=== PATIENT | male | born 1965 | race African-American/Black ===

== ENCOUNTER 2019-08-24 16:53 | Observation (INO) | payer OTHER ==
[~2019-08-24] VITALS: Ht 180.3 cm; Wt 83.2 kg
[2019-08-24] MEDS ORDERED: LACTATED RINGERS 1,000 ML IV ONE ×2 (17:07→20:06)
[2019-08-24 17:26] LABS: BASOPHILS % (AUTO) 0 % (0-10); EOSINOPHILS # (AUTO) 0.1 10^3/uL (0.0-0.3); EOSINOPHILS % (AUTO) 1 % (0-10); HEMATOCRIT 39 % (40-54); HEMOGLOBIN 13.6 G/DL (13.3-17.7); LYMPHOCYTES # (AUTO) 2.6 X 10^3 (1.0-4.0); LYMPHOCYTES % (AUTO) 37 % (12-44); MEAN CORPUSCULAR HEMOGLOBIN 32 PG (25-34); MEAN CORPUSCULAR HGB CONC 35 G/DL (32-36); MEAN CORPUSCULAR VOLUME 91 FL (80-99); MEAN PLATELET VOLUME 9.8 FL (7.4-10.4); MONOCYTES % (AUTO) 14 % (0-12); NEUTROPHILS # (AUTO) 3.2 X 10^3 (1.8-7.8); NEUTROPHILS % (AUTO) 47 % (42-75); PLATELET COUNT 290 10^3/uL (130-400); RED CELL DISTRIBUTION WIDTH 14.9 % (10.0-14.5); WHITE BLOOD COUNT 6.9 10^3/uL (4.3-11.0)
[2019-08-24 17:37] LABS: ALBUMIN 4.2 GM/DL (3.2-4.5); CHLORIDE 105 MMOL/L (98-107); POTASSIUM 4.3 MMOL/L (3.6-5.0); SODIUM 137 MMOL/L (135-145)
[2019-08-24 17:39] LABS: CALCIUM 8.9 MG/DL (8.5-10.1); INR 1.1 (0.8-1.4); PROTHROMBIN TIME PATIENT 14.5 SEC (12.2-14.7)
[2019-08-24 17:40] LABS: GLUCOSE 120 MG/DL (70-105); TOTAL PROTEIN 7.7 GM/DL (6.4-8.2)
[2019-08-24 17:41] LABS: CARBON DIOXIDE 17 MMOL/L (21-32)
[2019-08-24 17:42] LABS: BILIRUBIN,TOTAL 0.4 MG/DL (0.1-1.0)
[2019-08-24 17:43] LABS: ALKALINE PHOSPHATASE 53 U/L (40-136)
[2019-08-24 17:44] LABS: CREATININE SERUM 2.07 MG/DL (0.60-1.30); GFR ESTIMATED 41
[2019-08-24 17:45] LABS: BUN/CREATININE RATIO 12
[2019-08-24 17:46] LABS: ALANINE AMINOTRANSFERASE 31 U/L (0-55)
[2019-08-24 17:47] LABS: CREATINE KINASE 1229 U/L (30-200); MAGNESIUM 2.3 MG/DL (1.6-2.4)
[2019-08-24 17:54] LABS: CREATINE KINASE MB 2.8 NG/ML (<6.6)
[2019-08-24 18:14] LABS: BILIRUBIN,URINE NEGATIVE (NEGATIVE); CLARITY,URINE CLEAR; COLOR,URINE YELLOW; GLUCOSE, URINE (UA) NEGATIVE (NEGATIVE); KETONES,URINE NEGATIVE (NEGATIVE); LEUKOCYTE ESTERASE ,URINE NEGATIVE (NEGATIVE); NITRITE,URINE NEGATIVE (NEGATIVE); PROTEIN,URINE NEGATIVE (NEGATIVE)
--- NOTE | 2019-08-24 18:15 | Diagnostic Imaging Report ---
INDICATION: Heat exhaustion and muscle cramping. TIME OF EXAM: 06:03 p.m. COMPARISON: No prior studies are available for comparison. FINDINGS: The heart size is normal. The pulmonary vascularity is unremarkable. The lungs are clear. No infiltrate, effusion or pneumothorax is detected. IMPRESSION: No acute cardiopulmonary process is detected. Dictated by: Dictated on workstation # [id number]
[2019-08-24 18:22] LABS: BACTERIA,URINE NEGATIVE /HPF
--- NOTE | 2019-08-24 18:22 | ED General ---
General Chief Complaint: General Problems/Pain Stated Complaint: HEAT EXHAUSTION Nursing Triage Note: PT BROUGHT IN BY [facility] FROM SIDE OF ROAD WITH COMPLAINT OF HEAT EXHASTION AND MUSCLE CRAMPING. Nursing Sepsis Screen: No Definite Risk Source of Information: Patient, EMS History of Present Illness Date Seen by Provider: Aug 24, 2019 Time Seen by Provider: 16:54 Initial Comments PT ARRIVES VIA EMS PT IS FROM [place], AND IS HERE WORKING ON [employer] PT HAS HAD GENERALIZED MUSCLE CRAMPING FOR THE LAST 2 DAYS CRAMPING IS IN ALL OF HIS MUSCLES, INCLUDING "UNDER HIS RIBS" EMS REPORT THAT PT TRIED TO STAND AND HIS WHOLE BODY BEGAN TO CRAMP UP EMS REPORT THAT PT WAS VERY ANXIOUS AND HYPERVENTILATING AND THEY GAVE PT ATIVAN 1 MG, ALONG WITH AT LEAST 1500 ML OF SALINE EMS REPORTS THAT PT WAS TRYING TO DRIVE HERE BY POV AND GOT LOST, AND CALLED 911. FAMILY REPORTEDLY ARE FOLLOWING THE AMBULANCE. NO NAUSEA/VOMITING NO SHORTNESS OF BREATH PT STATES HE HAS URINATED 5 TIMES, AND LAST TIME WAS JUST PRIOR TO ARRIVAL STATES HE HAS STILL BEEN SWEATING PT STATES HE HAS HAD THIS BEFORE AND "GETS LOW ON 3 MINERALS--CALCIUM, POTASSIUM AND MAGNESIUM" PT STATES HE DRINKS AT LEAST 1/2 GALLON OF [employer] WHISKEY, PLUS AT LEAST 12 BEERS/ 40 OZ EACH EVERY DAY PT ALSO SMOKES MARIJUANA, AND SMOKES 1 PPD OF CIGARETTES PT FEVER OR RECENT ILLNESS NO KNOWN SICK CONTACTS OR KNOWN EXPOSURE TO COVID-19 Allergies and Home Medications Allergies Coded Allergies: No Known Drug Allergies (Unverified , 08/24/19) Patient Home Medication List Home Medication List Reviewed: Yes Review of Systems Review of Systems Constitutional: see HPI, other (ANXIOUS ) EENTM: no symptoms reported Respiratory: no symptoms reported; No cough, No short of breath Cardiovascular: see HPI, other (CHEST MUSCLES CRAMPING) Gastrointestinal: no symptoms reported; No abdominal pain, No nausea, No vomiting Genitourinary: no symptoms reported; No decreased output Musculoskeletal: see HPI, joint swelling (STATES HE HAS RHEUMATOID ARTHRITIS AND HIS THUMB JOINTS ARE SWOLLEN), muscle pain, muscle cramps, other (STATES HE HAS "BAD FEET" --HAS HAD 2 FOOT SURGERIES AND NEEDS TO HAVE 2 MORE AT SOME POINT IN THE FUTURE. ) Skin: no symptoms reported Psychiatric/Neurological: See HPI, Anxiety; Denies Headache, Denies Numbness, Denies Paresthesia, Denies Seizure, Denies Tingling, Denies Weakness Hematologic/Lymphatic: No Symptoms Reported Immunological/Allergic: no symptoms reported Past Wjcmman-Peskbs-Rxboso Hx Past Med/Social Hx: Reviewed and Corrections made Patient Social History Alcohol Use: Regular Use (1/2 GALLON [facility] WH[facility] PLUS 12 BEERS/40 OZ EACH EVERY DAY) Alcohol Beverage of Choice: Beer, Cheap Liquor Recreational Drug Use: Yes (THC) Drug of Choice: marijuana Smoking Status: Current Everyday Smoker (1 PPD) Recent Foreign Travel: No Contact w/Someone Who Travel: No Recent Infectious Disease Expo: No Recent Hopitalizations: No Immunizations Up To Date Tetanus Booster (TDap): Unknown PED Vaccines UTD: Yes Seasonal Allergies Seasonal Allergies: No Past Medical History Surgeries: Yes (BACK SURGERY X 2; HERNIA REPAIR; 2 FOOT SURGERIES) Abdominal, Orthopedic Respiratory: No Cardiac: No Neurological: No Genitourinary: No Gastrointestinal: No Musculoskeletal: Yes Arthritis, Rheumatoid Arthritis Endocrine: No HEENT: No Cancer: No Psychosocial: No Integumentary: No Blood Disorders: No Physical Exam Vital Signs Vital Signs - First Documented 08/24/19 16:53 Temp 37.0 Pulse 88 Resp 14 B/P (MAP) 121/86 (98) Pulse Ox 98 O2 Delivery Room Air Capillary Refill : Less Than 3 Seconds Height, Weight, BMI Height: '" Weight: lbs. oz. kg; 25.00 BMI Method: General Appearance: WD/WN, Anxious, Other (VERY ANXIOUS, VERY DRAMATIC, GRUNTING, GROANING AND MOANING. WON'T STAY ON THE ER CART-STATES HE HAS TO STAND DUE TO THE CRAMPING IN HIS LEGS AND FEET) Neck: Normal Inspection Respiratory: Normal Breath Sounds, No Accessory Muscle Use, No Respiratory Distress Cardiovascular: Regular Rate, Rhythm, No Edema, No JVD, No Murmur, Normal Peripheral Pulses Gastrointestinal: Non Tender, Soft Extremity: Normal Range of Motion, No Pedal Edema Neurologic/Psychiatric: Alert, Oriented x3, No Motor/Sensory Deficits, wallpaperer II- XII Norm as Tested Skin: Normal Color (PT IS BLACK), Warm/Dry Progress/Results/Core Measures Suspected Sepsis Recent Fever Within 48 Hours: No Infection Criteria Present: None New/Unexplained Altered Menta: No Sepsis Screen: No Definite Risk SIRS Temperature: Pulse: 88 Respiratory Rate: 14 Laboratory Tests 08/24/19 17:00: White Blood Count 6.9 Blood Pressure 121 /86 Mean: 98 Laboratory Tests 08/24/19 17:00: Creatinine 2.07H, INR Comment 1.1, Platelet Count 290, Total Bilirubin 0.4 Results/Orders Lab Results Laboratory Tests Test 08/24/19 17:00 08/24/19 18:07 Range/Units White Blood Count 6.9 4.3-11.0 10^3/uL Red Blood Count 4.29 L 4.35-5.85 10^6/uL Hemoglobin 13.6 13.3-17.7 G/DL Hematocrit 39 L 40-54 % Mean Corpuscular Volume 91 80-99 FL Mean Corpuscular Hemoglobin 32 25-34 PG Mean Corpuscular Hemoglobin Concent 35 32-36 G/DL Red Cell Distribution Width 14.9 H 10.0-14.5 % Platelet Count 290 130-400 10^3/uL Mean Platelet Volume 9.8 7.4-10.4 FL Neutrophils (%) (Auto) 47 42-75 % Lymphocytes (%) (Auto) 37 12-44 % Monocytes (%) (Auto) 14 H 0-12 % Eosinophils (%) (Auto) 1 0-10 % Basophils (%) (Auto) 0 0-10 % Neutrophils # (Auto) 3.2 1.8-7.8 X 10^3 Lymphocytes # (Auto) 2.6 1.0-4.0 X 10^3 Monocytes # (Auto) 1.0 0.0-1.0 X 10^3 Eosinophils # (Auto) 0.1 0.0-0.3 10^3/uL Basophils # (Auto) 0.0 0.0-0.1 10^3/uL Prothrombin Time 14.5 12.2-14.7 SEC INR Comment 1.1 0.8-1.4 Activated Partial Thromboplast Time 25 24-35 SEC Sodium Level 137 135-145 MMOL/L Potassium Level 4.3 3.6-5.0 MMOL/L Chloride Level 105 98-107 MMOL/L Carbon Dioxide Level 17 L 21-32 MMOL/L Anion Gap 15 H 5-14 MMOL/L Blood Urea Nitrogen 24 H 7-18 MG/DL Creatinine 2.07 H 0.60-1.30 MG/DL Estimat Glomerular Filtration Rate 41 BUN/Creatinine Ratio 12 Glucose Level 120 H 70-105 MG/DL Calcium Level 8.9 8.5-10.1 MG/DL Corrected Calcium 8.7 8.5-10.1 MG/DL Magnesium Level 2.3 1.6-2.4 MG/DL Total Bilirubin 0.4 0.1-1.0 MG/DL Aspartate Amino Transf (AST/SGOT) 48 H 5-34 U/L Alanine Aminotransferase (ALT/SGPT) 31 0-55 U/L Alkaline Phosphatase 53 40-136 U/L Total Creatine Kinase 1229 H 30-200 U/L Creatine Kinase MB 2.8 <6.6 NG/ML Myoglobin 488.3 H 10.0-92.0 NG/ML Troponin I < 0.028 <0.028 NG/ML B-Type Natriuretic Peptide 14.2 <100.0 PG/ML Total Protein 7.7 6.4-8.2 GM/DL Albumin 4.2 3.2-4.5 GM/DL Serum Alcohol < 10 <10 MG/DL My Orders Orders - ESTRELLA MEDEROS DO Ed Iv/Invasive Line Start (08/24/19 17:07) Ekg Tracing (08/24/19 17:07) Monitor-Rhythm Ecg Trace Only (08/24/19 17:07) Chest 1 View, Ap/Pa Only (08/24/19 17:07) Alcohol (08/24/19 17:07) BNP (08/24/19 17:07) Cbc With Automated Diff (08/24/19 17:07) Comprehensive Metabolic Panel (08/24/19 17:07) Creatine Kinase (08/24/19 17:07) Creatine Kinase Mb (08/24/19 17:07) Drug Screen Stat (Urine) (08/24/19 17:07) Magnesium (08/24/19 17:07) Protime With Inr (08/24/19 17:07) Partial Thromboplastin Time (08/24/19 17:07) Ua Culture If Indicated (08/24/19 17:07) Myoglobin Serum (08/24/19 17:07) Troponin I (08/24/19 17:07) Ed Iv/Invasive Line Start (08/24/19 17:07) Lactated Ringers (Lr 1000 Ml Iv Solution (08/24/19 17:07) Medications Given in ED Current Medications Medications Dose Ordered Sig/Kiran Route Start Time Stop Time Status Last Admin Dose Admin Lactated Ringer's 1,000 ml @ 0 mls/hr Q0M ONCE IV 08/24/19 17:07 08/24/19 17:10 DC 08/24/19 17:55 0 MLS/HR Vital Signs/I&O 08/24/19 16:53 Temp 37.0 Pulse 88 Resp 14 B/P (MAP) 121/86 (98) Pulse Ox 98 O2 Delivery Room Air Capillary Refill : Less Than 3 Seconds Blood Pressure Mean: 98 Progress Note : Progress Note NO DETERIORATION IN PT'S CONDITION DURING ER STAY. ECG Initial ECG Impression Date: Aug 24, 2019 Initial ECG Impression Time: 17:05 Initial ECG Rate: 89 Initial ECG Rhythm: Normal Sinus Initial ECG Comparisson: No Previous ECG Available Diagnostic Imaging Comments CXR--PER RADIOLOGIST REPORT AT 1822 FINDINGS: The heart size is normal. The pulmonary vascularity is unremarkable. The lungs are clear. No infiltrate, effusion or pneumothorax is detected. IMPRESSION: No acute cardiopulmonary process is detected. Reviewed: Reviewed by Nm Departure Communication (Admissions) 180--SPOKE WITH DR. MORALES, HOSPITALIST, ACCEPTS PT FOR ADMIT. WILL PUT ON ALCOHOL WITHDRAWL PROTOCOL. Impression Primary Impression: Renal failure Additional Impressions: Rhabdomyolysis Heat exhaustion Alcohol abuse Marijuana use Disposition: ADMITTED INPATIENT Condition: Stable Admissions Decision to Admit Reason: Admit from ER (General) Decision to Admit/Date: Aug 24, 2019 Time/Decision to Admit Time: 18:00 Departure-Patient Inst. Referrals: NO,LOCAL PHYSICIAN (PCP/Family) Primary Care Physician ESTRELLA MEDEROS DO Aug 24, 2019 18:22
[2019-08-24 18:28] LABS: AMPHETAMINE SCREEN, URINE NEGATIVE (NEGATIVE); BARBITURATE SCREEN URINE NEGATIVE (NEGATIVE); BENZODIAZEPINES SCREEN URINE NEGATIVE (NEGATIVE); CANNABINOID SCREEN, URINE POSITIVE (NEGATIVE); COCAINE SCREEN URINE NEGATIVE (NEGATIVE); METHADONE STAT NEGATIVE (NEGATIVE); METHAMPHETAMINE SCREEN URINE S NEGATIVE (NEGATIVE); OPIATE SCREEN URINE NEGATIVE (NEGATIVE); OXYCODONE STAT NEGATIVE (NEGATIVE); PROPOXYPHENE STAT NEGATIVE (NEGATIVE); TRICYCLIC ANTIDEPRESSANTS SCRE NEGATIVE (NEGATIVE)
--- NOTE | 2019-08-24 18:53 | NUR ---
REPORT GIVEN TO SHAI COSTELLO AT THIS TIME
--- NOTE | 2019-08-24 19:13 | NUR ---
Pt's updated with pt's status after getting pt's permission.
[2019-08-24 19:43] VITALS: BP 114/66
[2019-08-24] MEDS ORDERED: 1/2 NS IV SOLUTION 1,000 ML IV PRN (20:10)
--- NOTE | 2019-08-24 20:10 | NUR ---
LEOBARDO LÓPEZ admitted to room 409-1, with an admitting diagnosis of DEHYDRATION, RENAL FAILURE, RHABDOMYOLYSIS, HEAT EXHAUSTION, ALCOHOL WITHDRAWAL , on 08/24/19 from ED, accompanied by HOSPITAL STAFF. LEOBARDO LÓPEZ introduced to surroundings, call light, bed controls, phone, TV, temperature control, lights, meal times, smoking policy, visitor policy, side rail policy, bathrooms and showers. Patient Rights given to patient in the handbook.LEOBARDO LÓPEZ verbalizes understanding that [facility] is not responsible for the loss or damage to any personal effects or valuables that are kept in the patients posession during their hospitalization. LEOBARDO LÓPEZ verbalizes understanding of Interdisciplinary Patient Education. Patient and/or family were informed about the Rapid Response Team and its purpose.
[2019-08-24] MEDS ORDERED: CYCLOBENZAPRINE 10 MG (FLEXERIL) TAB PO PRN (20:15)
[2019-08-24] MEDS ORDERED: ANTACID SUSP 30 ML UDC (MYLANTA) PO PRN (20:15)
[2019-08-24] MEDS ORDERED: ACETAMINOPHEN 500 MG TAB (TYLENOL) PO PRN (20:15)
[2019-08-24] MEDS ORDERED: D5 1/2 NS 1000 ML IV SOLUTION 1,000 ML IV PRN (20:15)
[2019-08-24] MEDS ORDERED: LORazepam INJ 2 MG/ML (ATIVAN) VIAL IM/IV PRN (20:15)
[2019-08-24] MEDS ORDERED: LORazepam 1 MG (ATIVAN) TAB PO PRN (20:15)
[2019-08-24] MEDS ORDERED: ONDANSETRON 4 MG/2 ML (SDV) Z0FRAN IV PRN (20:15)
[2019-08-24] MEDS ORDERED: LORazepam INJ 2 MG/ML (ATIVAN) VIAL IV PRN (20:15)
[2019-08-24] MEDS ORDERED: ONDANSETRON 4 MG (ZOFRAN) ORAL DISSOLVE TAB SL PRN (20:15)
[2019-08-24] MEDS ORDERED: SENNA W/DOCUSATE (SENOKOT S) TABLET PO PRN (20:15)
[2019-08-24] MEDS: LACTATED RINGERS 1,000 ML IV SCH (20:20)
[2019-08-24] MEDS ORDERED: CATHETER FLUSH 10 ML SYR IV PRN (20:30)
[2019-08-24 20:33] VITALS: BP 114/66
--- OUTSIDE RECORDS SUMMARY | 2019-08-24 22:11 | XMS REPORT | Continuity of Care Document ---
Author Organization Unknown Address Unknown Phone Unavailable Allergies There is no data. Medications There is no data. 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 Results Test Result Range CRP SerPl-mCnc - 09/04/18 13:00 C-REACTIVE PROTEIN <0.5 MG/DL 0.0 - 1.0 Rheumatoid fact Ser-aCnc - 09/04/18 13:0 0 RA FACTOR 9 IU/ML 0 - 12 ESR Bld Qn Westrgrn - 09/04/18 13:00 ESR 15 MM/HR 0 - 15 Complete blood count (CBC) with automate d white blood cell (WBC) differential - 08/24/19 17:00 Blood leukocytes automated count (number/volume) 6.9 10*3/uL 4.3-11.0 Blood erythrocytes automated count (number/volume) 4.29 10*6/uL 4.35-5.85 Venous blood hemoglobin measurement (mass/volume) 13.6 g/dL 13.3-17.7 Blood hematocrit (volume fraction) 39 % 40-54 Automated erythrocyte mean corpuscular volume 91 [ foz_us] 80-99 Automated erythrocyte mean corpuscular h emoglobin (mass per erythrocyte) 32 pg 25-34 Automated erythrocyte mean corpuscular h emoglobin concentration measurement (mass/volume) 35 g/dL 32-36 Automated erythrocyte distribution width ratio 14. 9 % 10.0- 14.5 Automated blood platelet count (count/volume) 290 10*3/uL 130-400 Automated blood platelet mean volume measurement 9.8 [foz_us] 7.4-10.4 Automated blood neutrophils/100 leukocytes 47 % 42-75 Automated blood lymphocytes/100 leukocytes 37 % 12-44 Blood monocytes/100 leukocytes 14 % 0-12 Automated blood eosinophils/100 leukocytes 1 % 0-10 Automated blood basophils/100 leukocytes 0 % 0-10 Blood neutrophils automated count (number/volume) 3.2 10*3 1.8-7.8 Blood lymphocytes automated count (number/volume) 2.6 10*3 1.0-4.0 Blood monocytes automated count (number/volume) 1. 0 10*3 0.0-1.0 Automated eosinophil count 0.1 10*3/uL 0 .0-0.3 Automated blood basophil count (count/volume) 0.0 10*3/uL 0.0-0.1 Comprehensive metabolic panel - 08/24/19 17:00 Serum or plasma sodium measurement (moles/volume) 137 mmol/L 135-145 Serum or plasma potassium measurement (moles/volume) 4.3 mmol/L 3.6-5.0 Serum or plasma chloride measurement (moles/volume) 105 mmol/L 98-107 Carbon dioxide 17 mmol/L 21-32 Serum or plasma anion gap determination (moles/volume) 15 mmol/L 5-14 Serum or plasma urea nitrogen measurement (mass/volume ) 24 mg/dL 7-18 Serum or plasma creatinine measurement (mass/volume) 2.07 mg/dL 0.60-1.30 Serum or plasma urea nitrogen/creatinine mass ratio 12 NRG Serum or plasma creatinine measurement w ith calculation of estimated glomerular filtration rate 41 NRG Serum or plasma glucose measurement (mass/volume) 120 mg/dL 70-105 Serum or plasma calcium measurement (mass/volume) 8.9 mg/dL 8.5-10.1 Serum or plasma total bilirubin measurement (mass/volu me) 0.4 mg/dL 0.1-1.0 Serum or plasma alkaline phosphatase radha surement (enzymatic activity/volume) 53 U/L 40-136 Serum or plasma aspartate aminotransfera se measurement (enzymatic activity/volume) 48 U/L 5-34 Serum or plasma alanine aminotransferase measurement (enzymatic activity/volume) 31 U/L 0-55 Serum or plasma protein measurement (mass/volume) 7.7 g/dL 6.4-8.2 Serum or plasma albumin measurement (mass/volume) 4.2 g/dL 3.2-4.5 CALCIUM CORRECTED 8.7 mg/dL 8.5-10.1 Magnesium - 08/24/19 17:00 Magnesium 2.3 mg/dL 1.6-2.4 Serum or plasma creatine kinase measurem ent (enzymatic activity/volume) - 08/24/19 17:00 Serum or plasma creatine kinase measurem ent (enzymatic activity/volume) 1229 U/L 30-200 Serum or plasma creatine kinase MB measu rement (enzymatic activity/volume) - 08/24/19 17:00 Serum or plasma creatine kinase MB measu rement (enzymatic activity/volume) 2.8 ng/mL <6.6 Serum or plasma lithium measurement (mol es/volume) - 08/24/19 17:00 BNP PT 14.2 pg/mL <100.0 Serum or plasma troponin i.cardiac measu rement (mass/volume) - 08/24/19 17:00 Serum or plasma troponin i.cardiac measurement (mass/v olume) < ng/mL <0.028 Myoglobin, serum - 08/24/19 17:00 Myoglobin, serum 488.3 ng/mL 10.0-92.0 PT panel in platelet poor plasma by coag ulation assay - 08/24/19 17:00 Prothrombin time (PT) in platelet poor plasma by coagu lation assay 14.5 s 12.2-14.7 INR in platelet poor plasma or blood by coagulation as say 1.1 0.8-1.4 Activated partial thromboplastin time (a PTT) in platelet poor plasma bycoagulation assay - 08/24/19 17:00 Activated partial thromboplastin time (a PTT) in platelet poor plasma bycoagulation assay 25 s 24-35 Serum or plasma ethanol measurement (mas s/volume) - 08/24/19 17:00 Serum or plasma ethanol measurement (mass/volume) < mg/dL <10 Complete urinalysis with reflex to cultu re - 08/24/19 18:07 Urine color determination YELLOW NRG Urine clarity determination CLEAR NR G Urine pH measurement by test strip 7.0 5-9 Specific gravity of urine by test strip 1.010 1.016-1.022 Urine protein assay by test strip, semi-quantitative NEGATIVE NEGATIVE Urine glucose detection by automated test strip NE GATIVE NEGATIVE Erythrocytes detection in urine sediment by light micr oscopy NEGATIVE NEGATIVE Urine ketones detection by automated test strip NE GATIVE NEGATIVE Urine nitrite detection by test strip NEGATIVE NEGATIVE Urine total bilirubin detection by test strip NEGA TIVE NEGATIVE Urine urobilinogen measurement by automated test strip (mass/volume) 1.0 mg/dL < = 1.0 Urine leukocyte esterase detection by dipstick NEG ATIVE NEGATIVE Automated urine sediment erythrocyte cou nt by microscopy (number/high power field) NONE NRG Automated urine sediment leukocyte count by microscopy (number/high power field) NONE NRG Bacteria detection in urine sediment by light microsco py NEGATIVE NRG Squamous epithelial cells detection in u rine sediment by light microscopy NONE NRG Crystals detection in urine sediment by light microsco py NONE NRG Casts detection in urine sediment by light microscopy PRESENT NRG Mucus detection in urine sediment by light microscopy NEGATIVE NRG Complete urinalysis with reflex to culture NO NRG Hyaline casts detection in urine sediment by light rian roscopy 5-10 NRG Urine drug screening test - 08/24/19 18: 07 Urine phencyclidine detection by screening method NEGATIVE NEGATIVE Urine benzodiazepines detection by screening method NEGATIVE NEGATIVE Urine cocaine detection NEGATIVE NEGATI VE Urine amphetamines detection by screening method N EGATIVE NEGATIVE Urine methamphetamine detection by screening method NEGATIVE NEGATIVE Urine cannabinoids detection by screening method P OSITIVE NEGATIVE Urine opiates detection by screening method NEGATI VE NEGATIVE Urine barbiturates detection NEGATIVE N EGATIVE Screening urine tricyclic antidepressants detection NEGATIVE NEGATIVE Urine methadone detection by screening method NEGA TIVE NEGATIVE Urine oxycodone detection NEGATIVE NEGA TIVE Urine propoxyphene detection NEGATIVE N EGATIVE Encounters ACCT No. Visit Date/Time Discharge Status Pt. Type Provider Facility Loc./Unit Complaint [id number] 09/04/2018 13:40:00 09/04/2018 23:59: 59 C[facility] Outpatient MOHAN LUNDY [id number] 04/09/2018 13:20:00 04/09/2018 14:49: 00 DIS Emergency MICHELE LEE [facility] 014 [id number] 09/04/2018 13:40:00 Document Registration [id number] 08/14/2018 10:52:13 08/14/2018 23:59:5 9 [facility] Outpatient Mohan Lundy [id number] 08/24/2019 17:27:00 Document Registration
[2019-08-24] MEDS: THIAMINE INJECTION 100 MG, FOLIC ACID INJECTION 1 MG, MAGNESIUM SULFATE 2 GM, VITAMIN M... IV SCH ×5 (22:29)
--- OUTSIDE RECORDS SUMMARY | 2019-08-24 22:49 | XMS REPORT | Continuity of Care Document ---
[...] Status Pt. Type Provider Facility Loc./Unit Complaint [id number] 09/04/2018 13:40:00 09/04/2018 23:59: 59 CLS Outpatient MOHAN LUNDY [id number] 04/09/2018 13:20:00 04/09/2018 14:49: 00 DIS Emergency MICHELE LEE [facility] 014 [id number] 09/04/2018 13:40:00 Document Registration [id number] 08/14/2018 10:52:13 08/14/2018 23:59:5 9 [facility] Outpatient Mohan Lundy [id number] 08/24/2019 17:27:00 Document Registration
[2019-08-25 00:12] VITALS: BP 110/60
[2019-08-25 04:00] VITALS: BP 104/64
[2019-08-25] MEDS: LACTATED RINGERS 1,000 ML IV SCH (04:49)
[2019-08-25 05:54] LABS: BASOPHILS % (AUTO) 0 % (0-10); EOSINOPHILS # (AUTO) 0.3 10^3/uL (0.0-0.3); EOSINOPHILS % (AUTO) 4 % (0-10); HEMATOCRIT 38 % (40-54); HEMOGLOBIN 13.1 G/DL (13.3-17.7); LYMPHOCYTES # (AUTO) 2.9 X 10^3 (1.0-4.0); LYMPHOCYTES % (AUTO) 43 % (12-44); MEAN CORPUSCULAR HEMOGLOBIN 32 PG (25-34); MEAN CORPUSCULAR HGB CONC 35 G/DL (32-36); MEAN CORPUSCULAR VOLUME 93 FL (80-99); MEAN PLATELET VOLUME 9.4 FL (7.4-10.4); MONOCYTES # (AUTO) 0.8 X 10^3 (0.0-1.0); MONOCYTES % (AUTO) 12 % (0-12); NEUTROPHILS # (AUTO) 2.8 X 10^3 (1.8-7.8); NEUTROPHILS % (AUTO) 41 % (42-75); PLATELET COUNT 262 10^3/uL (130-400); RED CELL DISTRIBUTION WIDTH 15.1 % (10.0-14.5); WHITE BLOOD COUNT 6.8 10^3/uL (4.3-11.0)
[2019-08-25 06:03] LABS: ALBUMIN 3.8 GM/DL (3.2-4.5); CHLORIDE 108 MMOL/L (98-107); POTASSIUM 4.1 MMOL/L (3.6-5.0); SODIUM 139 MMOL/L (135-145)
[2019-08-25 06:04] LABS: CALCIUM 8.6 MG/DL (8.5-10.1)
[2019-08-25 06:06] LABS: GLUCOSE 107 MG/DL (70-105); TOTAL PROTEIN 6.8 GM/DL (6.4-8.2)
[2019-08-25 06:07] LABS: CARBON DIOXIDE 21 MMOL/L (21-32)
[2019-08-25 06:08] LABS: BILIRUBIN,TOTAL 0.3 MG/DL (0.1-1.0)
[2019-08-25 06:09] LABS: ALKALINE PHOSPHATASE 55 U/L (40-136); CREATININE SERUM 1.27 MG/DL (0.60-1.30); GFR ESTIMATED > 60
[2019-08-25 06:10] LABS: BUN/CREATININE RATIO 13
[2019-08-25 06:12] LABS: ALANINE AMINOTRANSFERASE 29 U/L (0-55); CREATINE KINASE 1424 U/L (30-200)
[2019-08-25 06:24] LABS: EOSINOPHILS % (MANUAL) 6 %; LYMPHOCYTES % (MANUAL) 43 %; MONOCYTES % (MANUAL) 8 %; NEUTROPHILS % (MANUAL) 43 %; RBC MORPH NORMAL
[2019-08-25 07:46] VITALS: BP 145/51
[2019-08-25] MEDS ORDERED: MULT-1067 PO (08:49)
[2019-08-25] MEDS ORDERED: ACET-2267 PO (08:49)
--- NOTE | 2019-08-25 08:50 | NUR ---
SPOKE WITH THE PT TO COMPLETE THE MED REC PT DENIES TAKING ANY PRESCRIPTION MEDICATION OTC MEDS: MTV TYLENOL PRN I DID UPDATE THE PATIENTS PREFERRED PHARMACY
[2019-08-25] MEDS: THIAMINE INJECTION 100 MG, FOLIC ACID INJECTION 1 MG, MAGNESIUM SULFATE 2 GM, VITAMIN M... IV SCH ×5 (09:33)
[2019-08-25 10:20] VITALS: BP 145/51
--- NOTE | 2019-08-25 10:20 | NUR ---
LEOBARDO LÓPEZ demonstrates understanding of discharge instructions and accurately returns instructions upon questioning. Copy of Post-Discharge Instructions and Medication Discharge Instructions given to PT. LEOBARDO LÓPEZ is able to manage continuing needs after discharge. Patients belongings returned to PT. Skin dry and intact; no breakdown noted. Patient discharged from [facility] on at 1020. LEOBARDO LÓPEZ left floor AMBULATING, accompanied by STAFF.
--- NOTE | 2019-08-25 15:26 | Discharge Summary ---
Discharge Summary Hospital Course Was the Problem List Reviewed?: Yes Problems/Dx: (1) Acute kidney injury Status: Acute (2) Dehydration Status: Acute Hospital Course Date of Admission: Aug 24, 2019 at 18:02 Admission Diagnosis : Acute kidney injury Family Physician/Provider: Deysi,Local Physician Date of Discharge: 08/25/19 Discharge Diagnosis: Acute kidney injury Hospital Course: Akin Fernandez is a 53-year-old male who presented with dehydration and was admitted with acute kidney injury. He was treated with IV fluids and his renal function improved. He also reported a history of alcohol abuse and was encouraged to decrease his use. He is from [place] and is working here temporarily but may be in the area for nearly a year. He was encouraged to establish care with a primary care physician. Labs and Pending Lab Test: Laboratory Tests 08/24/19 17:00: White Blood Count 6.9, Red Blood Count 4.29L, Hemoglobin 13.6, Hematocrit 39L, Mean Corpuscular Volume 91, Mean Corpuscular Hemoglobin 32, Mean Corpuscular Hemoglobin Concent 35, Red Cell Distribution Width 14.9H, Platelet Count 290, Mean Platelet Volume 9.8, Neutrophils (%) (Auto) 47, Lymphocytes (%) (Auto) 37, Monocytes (%) (Auto) 14H, Eosinophils (%) (Auto) 1, Basophils (%) (Auto) 0, Neutrophils # (Auto) 3.2, Lymphocytes # (Auto) 2.6, Monocytes # (Auto) 1.0, Eosinophils # (Auto) 0.1, Basophils # (Auto) 0.0, Prothrombin Time 14.5, INR Comment 1.1, Activated Partial Thromboplast Time 25, Sodium Level 137, Potassium Level 4.3, Chloride Level 105, Carbon Dioxide Level 17L, Anion Gap 15H, Blood Urea Nitrogen 24H, Creatinine 2.07H, Estimat Glomerular Filtration Rate 41, BUN/Creatinine Ratio 12, Glucose Level 120H, Calcium Level 8.9, Corrected Calcium 8.7, Magnesium Level 2.3, Total Bilirubin 0.4, Aspartate Amino Transf (AST/SGOT) 48H, Alanine Aminotransferase (ALT/SGPT) 31, Alkaline Phosphatase 53, Total Creatine Kinase 1229H, Creatine Kinase MB 2.8, Myoglobin 488.3H, Troponin I < 0.028, B-Type Natriuretic Peptide 14.2, Total Protein 7.7, Albumin 4.2, Serum Alcohol < 10 08/24/19 18:07: Urine Color YELLOW, Urine Clarity CLEAR, Urine pH 7.0, Urine Specific [place] 1.010L, Urine Protein NEGATIVE, Urine Glucose (UA) NEGATIVE, Urine Ketones NEGATIVE, Urine Nitrite NEGATIVE, Urine Bilirubin NEGATIVE, Urine Urobilinogen 1.0, Urine Leukocyte Esterase NEGATIVE, Urine RBC (Auto) NEGATIVE, Urine RBC NONE, Urine WBC NONE, Urine Squamous Epithelial Cells NONE, Urine Crystals NONE, Urine Bacteria NEGATIVE, Urine Casts PRESENT, Urine Hyaline Casts 5-10H, Urine Mucus NEGATIVE, Urine Culture Indicated NO, Urine Opiates Screen NEGATIVE, Urine Oxycodone Screen NEGATIVE, Urine Methadone Screen NEGATIVE, Urine Propoxyphene Screen NEGATIVE, Urine Barbiturates Screen NEGATIVE, Ur Tricyclic A ntidepressants Screen NEGATIVE, Urine Phencyclidine Screen NEGATIVE, Urine Amphetamines Screen NEGATIVE, Urine Methamphetamines Screen NEGATIVE, Urine Benzodiazepines Screen NEGATIVE, Urine Cocaine Screen NEGATIVE, Urine Cannabinoids Screen POSITIVEH 08/25/19 05:38: White Blood Count 6.8, Red Blood Count 4.11L, Hemoglobin 13.1L, Hematocrit 38L, Mean Corpuscular Volume 93, Mean Corpuscular Hemoglobin 32, Mean Corpuscular Hemoglobin Concent 35, Red Cell Distribution Width 15.1H, Platelet Count 262, Mean Platelet Volume 9.4, Neutrophils (%) (Auto) 41L, Lymphocytes (%) (Auto) 43, Monocytes (%) (Auto) 12, Eosinophils (%) (Auto) 4, Basophils (%) (Auto) 0, Neutrophils # (Auto) 2.8, Lymphocytes # (Auto) 2.9, Monocytes # (Auto) 0.8, Eosinophils # (Auto) 0.3, Basophils # (Auto) 0.0, Sodium Level 139, Potassium Level 4.1, Chloride Level 108H, Carbon Dioxide Level 21, Anion Gap 10, Blood Urea Nitrogen 16, Creatinine 1.27, Estimat Glomerular Filtration Rate > 60, BUN/Creatinine Ratio 13, Glucose Level 107H, Calcium Level 8.6, Corrected Calcium 8.8, Total Bilirubin 0.3, Aspartate Amino Transf (AST/SGOT) 45H, Alanine Aminotransferase (ALT/SGPT) 29, Alkaline Phosphatase 55, Total Creatine Kinase 1424H, Total Protein 6.8, Albumin 3.8, Neutrophils % (Manual) 43, Lymphocytes % (Manual) 43, Monocytes % (Manual) 8, Eosinophils % (Manual) 6, Blood Morphology Comment NORMAL Home Meds Active Reported Tylenol Extra Strength (Acetaminophen) 500 Mg Tablet 1,000 Mg PO Q6H PRN Centrum Adults Tablet (Multivitamin/Iron/Folic Acid) 1 Each Tablet 1 Each PO DAILY Assessment/Pt Instructions Stay well hydrated. Decreased alcohol use. Establish care with a primary care physician. Discharge Planning: <30 minutes discharge planning Discharge Instructions Discharge Diet: No Restrictions Activity as Tolerated: Yes Discharge Physical Examination Vital Signs Vital Signs Date Time Temp Pulse Resp B/P (MAP) Pulse Ox O2 Delivery O2 Flow Rate FiO2 08/25/19 10:20 36.5 56 20 145/51 96 Room Air General Appearance: No Apparent Distress, WD/WN HEENT: PERRL/EOMI, Pharynx Normal Respiratory: Lungs Clear, Normal Breath Sounds, No Respiratory Distress Cardiovascular: Regular Rate, Rhythm, No Edema, No Murmur Gastrointestinal: Normal Bowel Sounds, Non Tender, Soft Extremity: Normal Inspection, Non Tender, No Pedal Edema Skin: Normal Color, Warm/Dry Neurologic/Psychiatric: Alert, Oriented x3, No Motor/Sensory Deficits, Other (Angry and agitated) Allergies: Coded Allergies: No Known Drug Allergies (Unverified , 08/24/19) Discharge Summary Date of Admission Aug 24, 2019 at 18:02 Date of Discharge Aug 25, 2019 at 10:20 Discharge Date: Aug 25, 2019 Discharge Time: 10:20 Admission Diagnosis Acute kidney injury Discharge Diagnosis (1) Acute kidney injury Status: Acute (2) Dehydration Status: Acute Clinical Quality Measures DVT/VTE Risk/Contraindication: Risk Factor Score Per Nursin RFS Level Per Nursing on Admit: 3=High FISH MORALES MD Aug 25, 2019 15:25
== END 2019-08-25 09:27 | disposition home or self-care (01) ==
LOC: ER 17:05 → UNDOADMOB 18:02 → 4TH 18:02 → UNDODISOB 08-25 10:20
PROVIDERS: ADMIT Internal Medicine; ATTEND Internal Medicine
DX: N17.9 Acute kidney failure, unspecified (principal); E86.0 Dehydration; R25.2 Cramp and spasm; F17.210 Nicotine dependence, cigarettes, uncomplicated; M06.9 Rheumatoid arthritis, unspecified
CPT/HCPCS: 71045; 80053 ×2; 80306; 81000; 82550 ×2; 82553; 83735; 83874; 83880; 84484; 85007; 85025; 85027; 85610; 85730; 93005; 93041; 99284; G0378; G0480; 36415; 80320

== ENCOUNTER → 2019-10-14 | Outpatient (CLI) | payer OTHER ==
[~2019-10-14] MED LIST: ACET-2267 PO; MULT-1067 PO
[2019-10-14 09:18] LABS: BASOPHILS % (AUTO) 0 % (0-10); EOSINOPHILS % (AUTO) 0 % (0-10); HEMATOCRIT 41 % (40-54); HEMOGLOBIN 13.9 G/DL (13.3-17.7); LYMPHOCYTES # (AUTO) 1.1 X 10^3 (1.0-4.0); LYMPHOCYTES % (AUTO) 12 % (12-44); MEAN CORPUSCULAR HEMOGLOBIN 31 PG (25-34); MEAN CORPUSCULAR HGB CONC 34 G/DL (32-36); MEAN CORPUSCULAR VOLUME 92 FL (80-99); MONOCYTES # (AUTO) 0.7 X 10^3 (0.0-1.0); MONOCYTES % (AUTO) 8 % (0-12); NEUTROPHILS # (AUTO) 7.3 X 10^3 (1.8-7.8); NEUTROPHILS % (AUTO) 81 % (42-75); PLATELET COUNT 321 10^3/uL (130-400); RED CELL DISTRIBUTION WIDTH 15.2 % (10.0-14.5); WHITE BLOOD COUNT 9.1 10^3/uL (4.3-11.0)
[2019-10-14 09:37] LABS: URIC ACID 4.9 MG/DL (2.6-7.2)
[2019-10-14 09:42] LABS: ERYTHROCYTE SEDIMENTATION RATE 6 MM/HR (0-30)
== END ==
LOC: LAB 08:53
PROVIDERS: ATTEND Nurse Practitioner Family
DX: M18.0 Bilateral primary osteoarthritis of first carpometacarpal joints (principal); M79.641 Pain in right hand; M79.642 Pain in left hand
CPT/HCPCS: 36415; 84550; 85025; 85652; 86141; 86200; 86235; 86431

== ENCOUNTER 2020-04-18 16:49 | Emergency (ER) | payer OTHER ==
[~2020-04-18] VITALS: Ht 180.3 cm; Wt 79.3 kg
[2020-04-18 18:11] LABS: BILIRUBIN,URINE NEGATIVE (NEGATIVE); CLARITY,URINE CLEAR; COLOR,URINE YELLOW; GLUCOSE, URINE (UA) NEGATIVE (NEGATIVE); KETONES,URINE TRACE (NEGATIVE); LEUKOCYTE ESTERASE ,URINE NEGATIVE (NEGATIVE); NITRITE,URINE NEGATIVE (NEGATIVE); PROTEIN,URINE NEGATIVE (NEGATIVE)
[2020-04-18 18:18] LABS: BACTERIA,URINE NEGATIVE /HPF; RBC,URINE 0-2 /HPF; SQUAMOUS EPITHELIAL CELL,UR 0-2 /HPF
[2020-04-18] MEDS ORDERED: KETOROLAC 30 MG/ML VIAL IVP STA (18:47)
[2020-04-18] MEDS ORDERED: FAMOTIDINE 20MG/2ML IV (PEPCID) IV STA (18:48)
--- NOTE | 2020-04-18 18:59 | ED General ---
General Chief Complaint: General Problems/Pain Stated Complaint: ABD PAIN, HURTS ALL OVER Nursing Triage Note: Pt ambulatory to ED. Pt has multiple complaints. Pt reports having rheumatoid arthritis and reports not having injections for five years. Pt c/o pain and inflammation in hands. Pt reports severe abdominal pain that radiates into back that has persisted "for a long time." Pt denies ever seeking treatment and states, "I am now scared." Pt also reports night sweats. Nursing Sepsis Screen: No Definite Risk Source of Information: Patient Exam Limitations: No Limitations History of Present Illness Date Seen by Provider: Apr 18, 2020 Time Seen by Provider: 18:38 Initial Comments Here with a variety of complaints but mostly related around upper abdominal pain that radiates to his back. Also states it radiates up into his chest. Notes that this occurs after working hard during the day or and or breathing hard. He does work on the [email or web address]. States he stays on the ground. He has been traveling for several years with this job and is only here for 3 more weeks. Does have some discomfort currently. Previously was on medication for acid reflux but has been off that for a while or out of it anyway. Admits to smoking 1 to 2 packs of cigarettes a day and drinking 6-12 beers daily. Denies current drug use but has smoked marijuana in the past. He is working on slowing down both on the drinking and smoking and knows that those are adversely affecting his body. Timing/Duration: Changing Over Time, Getting Worse, Other (On and off for weeks to months) Severity: Moderate Associated Systoms: Chest Pain; No Cough, No Fever/Chills, No Nausea/Vomiting; Shortness of Air; No Weakness Allergies and Home Medications Allergies Coded Allergies: No Known Drug Allergies (Unverified , 08/24/19) Home Medications Acetaminophen 500 Mg Tablet, 1,000 MG PO Q6H PRN for PAIN-MILD (1-4), (Reported) Multivitamin/Iron/Folic Acid 1 Each Tablet, 1 EACH PO DAILY, (Reported) Patient Home Medication List Home Medication List Reviewed: Yes Review of Systems Review of Systems Constitutional: see HPI; No chills, No fever EENTM: No nose congestion, No throat pain Respiratory: No cough; short of breath Cardiovascular: chest pain; No edema Gastrointestinal: abdominal pain; No nausea, No vomiting Genitourinary: no symptoms reported Musculoskeletal: joint pain, muscle pain Skin: no symptoms reported Psychiatric/Neurological: No Symptoms Reported All Other Systems Reviewed Negative Unless Noted: Yes Past Uopzmlh-Vmqiac-Rvsbpk Hx Past Med/Social Hx: Reviewed Nursing Past Med/Soc Hx Patient Social History Alcohol Use: Regular Use Number of Drinks Today: CC Alcohol Beverage of Choice: Beer, Cheap Liquor Drug of Choice: marijuana Smoking Status: Current Everyday Smoker Recent Infectious Disease Expo: No Recent Hopitalizations: No Immunizations Up To Date Tetanus Booster (TDap): Unknown PED Vaccines UTD: Yes Seasonal Allergies Seasonal Allergies: No Past Medical History Surgeries: Yes (BACK SURGERY X 2; HERNIA REPAIR; 2 FOOT SURGERIES) Abdominal, Orthopedic Respiratory: Yes Asthma, COPD Cardiac: Yes ("mild heart attack") Neurological: No Genitourinary: No Gastrointestinal: No Musculoskeletal: Yes Arthritis, Rheumatoid Arthritis Endocrine: No HEENT: No Cancer: No Psychosocial: No Integumentary: No Blood Disorders: No Family Medical History Reviewed Nursing Family Hx Physical Exam Vital Signs Vital Signs - First Documented 04/18/20 17:45 Temp 37.1 Pulse 75 Resp 18 B/P (MAP) 132/85 (101) Pulse Ox 98 O2 Delivery Room Air Capillary Refill : Less Than 3 Seconds Height, Weight, BMI Height: '" Weight: lbs. oz. kg; 24.00 BMI Method: General Appearance: No Apparent Distress, WD/WN HEENT: PERRL/EOMI, Pharynx Normal Neck: Non Tender, Supple Respiratory: Lungs Clear, Normal Breath Sounds Cardiovascular: Regular Rate, Rhythm, No Murmur Gastrointestinal: Non Tender, Soft Back: Normal Inspection, No CVA Tenderness, No Vertebral Tenderness Extremity: Normal Range of Motion, Non Tender, Other (Clubbing noted to cruz garcia) Neurologic/Psychiatric: Alert, Oriented x3 Skin: Normal Color, Warm/Dry Progress/Results/Core Measures Suspected Sepsis Recent Fever Within 48 Hours: No Infection Criteria Present: None New/Unexplained Altered Menta: No Sepsis Screen: No Definite Risk SIRS Temperature: Pulse: 75 Respiratory Rate: 18 Laboratory Tests 04/18/20 18:25: White Blood Count 7.3 Blood Pressure 132 /85 Mean: 101 Laboratory Tests 04/18/20 18:25: Creatinine 1.33H, Platelet Count 312, Total Bilirubin 0.3 Results/Orders Lab Results Laboratory Tests Test 04/18/20 18:02 04/18/20 18:25 Range/Units Urine Color YELLOW Urine Clarity CLEAR Urine pH 6.0 5-9 Urine Specific [place] 1.025 H 1.016-1.022 Urine Protein NEGATIVE NEGATIVE Urine Glucose (UA) NEGATIVE NEGATIVE Urine Ketones TRACE H NEGATIVE Urine Nitrite NEGATIVE NEGATIVE Urine Bilirubin NEGATIVE NEGATIVE Urine Urobilinogen 0.2 < = 1.0 MG/DL Urine Leukocyte Esterase NEGATIVE NEGATIVE Urine RBC (Auto) TRACE-I NEGATIVE Urine RBC 0-2 /HPF Urine WBC 2-5 /HPF Urine Squamous Epithelial Cells 0-2 /HPF Urine Crystals NONE /LPF Urine Bacteria NEGATIVE /HPF Urine Casts NONE /LPF Urine Mucus MODERATE H /LPF Urine Culture Indicated NO White Blood Count 7.3 4.3-11.0 10^3/uL Red Blood Count 4.18 L 4.30-5.52 10^6/uL Hemoglobin 13.1 L 13.3-17.7 g/dL Hematocrit 38 L 40-54 % Mean Corpuscular Volume 91 80-99 fL Mean Corpuscular Hemoglobin 31 25-34 pg Mean Corpuscular Hemoglobin Concent 34 32-36 g/dL Red Cell Distribution Width 14.6 H 10.0-14.5 % Platelet Count 312 130-400 10^3/uL Mean Platelet Volume 9.7 9.0-12.2 fL Immature Granulocyte % (Auto) 0 % Neutrophils (%) (Auto) 43 42-75 % Lymphocytes (%) (Auto) 47 H 12-44 % Monocytes (%) (Auto) 8 0-12 % Eosinophils (%) (Auto) 2 0-10 % Basophils (%) (Auto) 0 0-10 % Neutrophils # (Auto) 3.1 1.8-7.8 10^3/uL Lymphocytes # (Auto) 3.4 1.0-4.0 10^3/uL Monocytes # (Auto) 0.6 0.0-1.0 10^3/uL Eosinophils # (Auto) 0.1 0.0-0.3 10^3/uL Basophils # (Auto) 0.0 0.0-0.1 10^3/uL Immature Granulocyte # (Auto) 0.0 0.0-0.1 10^3/uL Sodium Level 138 135-145 MMOL/L Potassium Level 3.6 3.6-5.0 MMOL/L Chloride Level 105 98-107 MMOL/L Carbon Dioxide Level 23 21-32 MMOL/L Anion Gap 10 5-14 MMOL/L Blood Urea Nitrogen 21 H 7-18 MG/DL Creatinine 1.33 H 0.60-1.30 MG/DL Estimat Glomerular Filtration Rate > 60 BUN/Creatinine Ratio 16 Glucose Level 84 70-105 MG/DL Calcium Level 9.1 8.5-10.1 MG/DL Corrected Calcium 8.8 8.5-10.1 MG/DL Magnesium Level 2.3 1.6-2.4 MG/DL Total Bilirubin 0.3 0.1-1.0 MG/DL Aspartate Amino Transf (AST/SGOT) 33 5-34 U/L Alanine Aminotransferase (ALT/SGPT) 28 0-55 U/L Alkaline Phosphatase 52 40-136 U/L Troponin I < 0.028 <0.028 NG/ML C-Reactive Protein High Sensitivity 0.18 0.00-0.50 MG/DL Total Protein 7.8 6.4-8.2 GM/DL Albumin 4.4 3.2-4.5 GM/DL Lipase 27 8-78 U/L My Orders Orders - LILY MATA MD Ed Iv/Invasive Line Start (04/18/20 18:47) Ekg Tracing (04/18/20 18:47) Chest Pa/Lat (2 View) (04/18/20 18:47) Cbc With Automated Diff (04/18/20 18:47) Comprehensive Metabolic Panel (04/18/20 18:47) Hs C Reactive Protein (04/18/20 18:47) Lipase (04/18/20 18:47) Magnesium (04/18/20 18:47) Troponin I (04/18/20 18:47) Ketorolac Injection (Toradol Injection) (04/18/20 18:47) Famotidine Injection (Pepcid Injection) (04/18/20 18:48) Ct Abdomen/Pelvis W (04/18/20 19:52) Ns Iv 1000 Ml (Sodium Chloride 0.9%) (04/18/20 20:00) Iohexol Injection (Omnipaque 350 Mg/Ml 1 (04/18/20 20:15) Received Contrast (Hold Metformin- Contr (04/18/20 20:15) Sodium Chloride Flush (Catheter Flush Sy (04/18/20 20:15) Ns (Ivpb) (Sodium Chloride 0.9% Ivpb Bag (04/18/20 20:15) Albuterol Inhaler (Ventolin Hfa) (04/18/20 22:00) Medications Given in ED Current Medications Medications Dose Ordered Sig/Kiran Route Start Time Stop Time Status Last Admin Dose Admin Iohexol 100 ml ONCE ONCE IV 04/18/20 20:15 04/18/20 20:16 DC 04/18/20 20:32 100 ML Sodium Chloride 10 ml NEEDED PRN IV 04/18/20 20:15 04/18/20 20:32 10 ML Sodium Chloride 100 ml ONCE ONCE IV 04/18/20 20:15 04/18/20 20:16 DC 04/18/20 20:32 80 ML Sodium Chloride 1,000 ml @ 0 mls/hr Q0M ONCE IV 04/18/20 20:00 04/18/20 20:01 DC 04/18/20 20:53 1,000 MLS/HR Vital Signs/I&O 04/18/20 17:45 Temp 37.1 Pulse 75 Resp 18 B/P (MAP) 132/85 (101) Pulse Ox 98 O2 Delivery Room Air Capillary Refill : Less Than 3 Seconds Blood Pressure Mean: 101 Progress Note : Progress Note Seen and evaluated. IV, labs, EKG and chest x-ray ordered. Toradol 30 mg IV ordered. Monitor patient. 1951: CT abdomen and pelvis ordered. Labs look okay but he does have significant risk secondary to drinking and smoking for cancer related issues so we will go ahead and get the CT scan. This was discussed at length with the patient and he agreed. Monitor patient. 2114: CT negative except for increased stool. Otherwise no acute findings. We will give him an albuterol inhaler with spacer for his intermittent COPD/emphysema breathing issues. Nurse will do that with teaching now. I will prescribe him outpatient albuterol ampules for his breathing machine since he is out of that. He will follow-up in [place] for recheck and further evaluation before going to his next location in [place]. Otherwise we will continue eozo-ugi-[id number] omeprazole and MiraLAX as needed due to constipation findings on CT scan. Discharged home with return precautions. Patient verbalized understanding of instructions and ag reement with plan. We did discuss his upper shoulder and neck tightness and we discussed topical icy hot with lidocaine or similar and he will try that. ECG Initial ECG Impression Date: Apr 18, 2020 Initial ECG Impression Time: 19:18 Initial ECG Rate: 59 Initial ECG Rhythm: Normal Sinus Comment Sinus rhythm with normal axis. No evidence of ST elevation MO. No previous available for comparison. Interpreted by me. Diagnostic Imaging Diagonstic Imaging: Xray Plain Films/CT/US/NM/MRI: chest Comments [facility], [place] NAME: LEOBARDO LÓPEZ [facility] REC#: [id number] PT STATUS: REG ER : 1965 PHYSICIAN: LILY MATA MD ADMIT DATE: 04/18/20/ER Signed Date of Exam:04/18/20 CHEST PA/LAT (2 VIEW) INDICATION: Chest pain. TIME OF EXAM: 7:06 PM CORRELATION is made with prior chest from 08/24/2019. Heart size is normal. The lungs appear to be clear. No infiltrates are seen. There is no effusion or pneumothorax. IMPRESSION: No acute abnormality is detected. Dictated by: Dictated on workstation # [id number] Dict: 04/18/201909 Trans: 04/18/201925 [facility] [phone] Interpreted by: DEREK RAMOS MD Electronically signed by: DEREK RAMOS MD 04/18/201925 Reviewed: Reviewed by Me Diagonstic Imaging: CT Plain Films/CT/US/NM/MRI: abdomen, pelvis Comments NAME: LEOBARDO LÓPEZ [facility] REC#: [id number] PT STATUS: REG ER : 1965 PHYSICIAN: LILY MATA MD ADMIT DATE: 04/18/20/ER Draft Date of Exam:04/18/20 CT ABDOMEN/PELVIS W PROCEDURE: CT abdomen and pelvis with contrast. TECHNIQUE: Multiple contiguous axial images were obtained through the abdomen and pelvis after administration of intravenous contrast. Auto Exposure Controls were utilized during the CT exam to meet ALARA standards for radiation dose reduction. All CT scans use one or more of the following dose optimizing techniques: automated exposure control, MA and/or KvP adjustment based on patient size and exam type or iterative reconstruction. INDICATION: Lower abdominal pain radiating to the back. Upper abdominal pain. COMPARISON: None FINDINGS: The lung bases are clear. The heart is normal in size. There is no pericardial effusion. The liver demonstrates no focal lesions. The spleen appears normal. The pancreas is normal. The adrenal glands appear normal. The kidneys are unremarkable. There is moderate gas and stool in the ascending and transverse colon. There are multiple gas-filled loops of small bowel, which are not significantly distended to suggest obstruction, and no transition point is seen. The appendix is normal (image 52 series 2). No free fluid or free air is seen. No lymphadenopathy is seen. There is degenerative change and postsurgical change in the lumbar spine. 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 IMPRESSION: 1. Moderate stool in the colon, please correlate with any history of constipation. No bowel obstruction is seen. Dictated on workstation # [id number] Dict: 04/18/202046 Trans: 04/18/202101 [facility] [phone] Interpreted by: HEMALATHA ROMERO MD Electronically signed by: Reviewed: Reviewed by Me Departure Impression Primary Impression: Upper abdominal pain Additional Impressions: Chest tightness Constipation Qualified Codes: K59.00 - Constipation, unspecified Disposition: 01 HOME, SELF-CARE Condition: Improved Departure-Patient Inst. Decision time for Depature: 21:22 Referrals: NO,LOCAL PHYSICIAN (PCP/Family) Primary Care Physician Patient Instructions: CHRONIC PAIN, Abdominal Pain, Adult ED, Constipation, Adult (DC) Add. Discharge Instructions: All discharge instructions reviewed with patient and/or family. Voiced und erstanding. You should decrease alcohol and tobacco for your health and consider quitting over time. For the constipation, you may use MiraLAX at the generic 1 capful daily as needed for improved bowel movements. You may increase or decrease the dose as needed to obtain a normal bowel regimen. You may take ngik-dpa-tweonks omeprazole 20 mg daily. This comes in up to 6-week packs. You should purchase a 6-week pack and take it until complete. You may use [id number]-[id number] Icy Hot with lidocaine patches or cream, Aspercreme with lidocaine patches or cream, Salonpas with lidocaine patches or cream or similar items to area of concern per package directions for shoulder and neck tightness or pain. Return for worse pain, fever, vomiting, weakness, breathing problems or other concerns as needed. Scripts Albuterol Sulfate (Albuterol Sulfate) 2.5 Mg/3 Ml Vial.neb 2.5 MG INH Q4H PRN for WHEEZING, #50 EA 1 Refill Prov: LILY MATA MD 04/18/20 LILY MATA MD Apr 18, 2020 18:59
--- NOTE | 2020-04-18 19:21 | Diagnostic Imaging Report ---
INDICATION: Chest pain. TIME OF EXAM: 7:06 PM CORRELATION is made with prior chest from 08/24/2019. Heart size is normal. The lungs appear to be clear. No infiltrates are seen. There is no effusion or pneumothorax. IMPRESSION: No acute abnormality is detected. Dictated by: Dictated on workstation # [id number]
[2020-04-18 19:23] LABS: ALBUMIN 4.4 GM/DL (3.2-4.5); CHLORIDE 105 MMOL/L (98-107); POTASSIUM 3.6 MMOL/L (3.6-5.0); SODIUM 138 MMOL/L (135-145)
[2020-04-18 19:25] LABS: BASOPHILS % (AUTO) 0 % (0-10); CALCIUM 9.1 MG/DL (8.5-10.1); EOSINOPHILS # (AUTO) 0.1 10^3/uL (0.0-0.3); EOSINOPHILS % (AUTO) 2 % (0-10); HEMATOCRIT 38 % (40-54); HEMOGLOBIN 13.1 g/dL (13.3-17.7); LYMPHOCYTES # (AUTO) 3.4 10^3/uL (1.0-4.0); LYMPHOCYTES % (AUTO) 47 % (12-44); MEAN CORPUSCULAR HEMOGLOBIN 31 pg (25-34); MEAN CORPUSCULAR HGB CONC 34 g/dL (32-36); MEAN CORPUSCULAR VOLUME 91 fL (80-99); MEAN PLATELET VOLUME 9.7 fL (9.0-12.2); MONOCYTES # (AUTO) 0.6 10^3/uL (0.0-1.0); MONOCYTES % (AUTO) 8 % (0-12); NEUTROPHILS # (AUTO) 3.1 10^3/uL (1.8-7.8); NEUTROPHILS % (AUTO) 43 % (42-75); PLATELET COUNT 312 10^3/uL (130-400); WHITE BLOOD COUNT 7.3 10^3/uL (4.3-11.0)
[2020-04-18 19:26] LABS: GLUCOSE 84 MG/DL (70-105); TOTAL PROTEIN 7.8 GM/DL (6.4-8.2)
[2020-04-18 19:27] LABS: CARBON DIOXIDE 23 MMOL/L (21-32)
[2020-04-18 19:28] LABS: BILIRUBIN,TOTAL 0.3 MG/DL (0.1-1.0)
[2020-04-18 19:29] LABS: ALKALINE PHOSPHATASE 52 U/L (40-136)
[2020-04-18 19:30] LABS: CREATININE SERUM 1.33 MG/DL (0.60-1.30); GFR ESTIMATED > 60
[2020-04-18 19:31] LABS: BUN/CREATININE RATIO 16
[2020-04-18 19:32] LABS: ALANINE AMINOTRANSFERASE 28 U/L (0-55); MAGNESIUM 2.3 MG/DL (1.6-2.4)
[2020-04-18 19:33] LABS: LIPASE 27 U/L (8-78)
[2020-04-18] MEDS ORDERED: NS IV 1000 ML 1,000 ML IV ONE (20:00)
[2020-04-18] MEDS ORDERED: NS 100 ML (IVPB) BAG IV ONE (20:15)
[2020-04-18] MEDS ORDERED: CATHETER FLUSH 10 ML SYR IV PRN (20:15)
[2020-04-18] MEDS ORDERED: HOLD METFORMIN - RECEIVED CONTRAST 20 ML VIAL IV SCH (20:15)
[2020-04-18] MEDS ORDERED: IOHEXOL 350 MG/ML 100 ML (OMNIPAQUE 350) VIAL IV ONE (20:15)
--- NOTE | 2020-04-18 21:03 | Diagnostic Imaging Report ---
PROCEDURE: CT abdomen and pelvis with contrast. TECHNIQUE: Multiple contiguous axial images were obtained through the abdomen and pelvis after administration of intravenous contrast. Auto Exposure Controls were utilized during the CT exam to meet ALARA standards for radiation dose reduction. All CT scans use one or more of the following dose optimizing techniques: automated exposure control, MA and/or KvP adjustment based on patient size and exam type or iterative reconstruction. INDICATION: Lower abdominal pain radiating to the back. Upper abdominal pain. COMPARISON: None FINDINGS: The lung bases are clear. The heart is normal in size. There is no pericardial effusion. The liver demonstrates no focal lesions. The spleen appears normal. The pancreas is normal. The adrenal glands appear normal. The kidneys are unremarkable. There is moderate gas and stool in the ascending and transverse colon. There are multiple gas-filled loops of small bowel, which are not significantly distended to suggest obstruction, and no transition point is seen. The appendix is normal (image 52 series 2). No free fluid or free air is seen. No lymphadenopathy is seen. There is degenerative change and postsurgical change in the lumbar spine. 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 IMPRESSION: 1. Moderate stool in the colon, please correlate with any history of constipation. No bowel obstruction is seen. Dictated by: Dictated on workstation # [id number]
[2020-04-18] MEDS ORDERED: ALBU2.5V4 INH (21:25)
[2020-04-18 21:48] VITALS: BP 108/84
[2020-04-18] MEDS ORDERED: RT-ALBUTEROL INHALER HFA (VENTOLIN HFA) 18 GM IH SCH (22:00)
== END 2020-04-18 21:45 | disposition home or self-care (01) ==
LOC: EDUNIT# 16:49 → ER 16:53
DX: R10.10 Upper abdominal pain, unspecified (principal); R07.89 Other chest pain; K59.00 Constipation, unspecified; I25.2 Old myocardial infarction; F17.210 Nicotine dependence, cigarettes, uncomplicated
CPT/HCPCS: 36415; 71046; 74177; 80053; 81000; 83690; 83735; 84484; 85025; 86141; 93005